=== PATIENT | female | born 1945 | race Caucasian/White ===

== ENCOUNTER → 2020-06-16 | Outpatient (CLI) | payer MEDICARE, BC ==
--- NOTE | 2020-06-16 15:54 | CT ---
EXAMINATION TYPE: CT abdomen pelvis w con DATE OF EXAM: 06/16/2020 COMPARISON: NONE HISTORY: 74-year-old female K59.00, constipation, K57.33 diverticulitis, abdominal pain, nausea TECHNIQUE: Contiguous axial scanning of the abdomen and pelvis following administration of 100 ml Iso remy 300 IV contrast. Delayed images through the kidneys and coronal/sagittal reconstructions perform ed. CT DLP: 617 mGycm Automated exposure control for dose reduction was used. FINDINGS: Heart normal size without pericardial effusion. Strandy atelectasis at the left base. No pleural effu anthony. An indeterminate 1.6 cm hypodense lesion at the right hepatic dome cyst that shows some postcontrast enhancement. No additional focal lesion. No biliary ductal dilatation. Portal venous system is patent . Gallbladder, adrenal glands, spleen, pancreas appear within normal limits. Numerous cortical hypodensities too small for accurate CT characterization, likely small cortical cys ts. In addition, there are parapelvic cysts in the left kidney measuring up to 2.0 cm. 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 No dilated small bowel, free fluid or air. No mesenteric or retroperitoneal lymphadenopathy. Oral contrast progressed to the cecum. There is mild stool within the right side of the colon. Otherw ise, no pericolonic inflammatory change. Bladder partially urine distended. Multiple pelvic phleboliths. Uterus surgically absent. Neither ova ry clearly visualized. No abnormal fluid collection in the pelvis or pelvic lymphadenopathy. Bones: Mild degenerative change of the hips. Hypertrophic facet arthropathy mid to lower lumbar spine . Trace grade 1 anterolisthesis L4-L5. IMPRESSION: 1. INDETERMINATE 1.6 CM HYPODENSE LESION AT THE RIGHT HEPATIC DOME SEEMS TO SHOW SOME ENHANCEMENT. LI SHELLEY MRI CAN FURTHER EVALUATE. NEOPLASM NOT EXCLUDED AT THIS TIME. 2. NO DIVERTICULOSIS OR ACUTE DIVERTICULITIS. 3. MILD STOOL WITHIN THE RIGHT SIDE OF THE COLON. 4. NUMEROUS SMALL RENAL LESIONS, LIKELY SMALL CORTICAL CYSTS. THERE IS ALSO A 1.7 CM BENIGN FATTY AM L OF THE LEFT KIDNEY.
== END ==
LOC: RADCTMAIN 13:59
PROVIDERS: ATTEND Surgery
DX: K59.00 Constipation, unspecified (principal); K76.89 Other specified diseases of liver; N28.9 Disorder of kidney and ureter, unspecified
CPT/HCPCS: 82565; 84520; 74177; 36415; Q9967

== ENCOUNTER → 2020-06-27 | Outpatient (CLI) | payer MEDICARE, BC ==
--- NOTE | 2020-06-29 11:27 | MR ---
MR liver without contrast HISTORY: Liver mass Multiplanar multisequence imaging through the abdomen Lack of intravenous contrast could compromise sensitivity. Exam correlated to CT scan dated 06/16/2020 At the level of the dome of the liver there is a T2 bright, T1 hypointense focus measuring approximat [place] 2.8 cm in cephalad to caudal dimension by 2.5 cm in its AP dimension by 2.3 cm in transverse dime nsion which was noted to enhance on CT. There is no retroperitoneal adenopathy. No additional liver m ass evident. There is no ascites. Multiple T2 bright foci scattered within the kidneys likely represent cysts, there are likely parapel akash cysts noted as well, focus of fat attenuation seen in the mid left kidney is again noted on MRI c onsistent with angiomyolipoma. Adrenal glands are unremarkable. Pancreas shows no mass. Gallbladder s hows dependent focal low signal which may represent a small gallstone. Spleen is not enlarged. Lung b ases show no effusions. IMPRESSION: Findings as noted on prior CT. Indeterminate liver mass. Noncontrast exam per patient's o rder.
== END | disposition home or self-care (01) ==
LOC: RADMRIMAIN 10:26
PROVIDERS: ATTEND Surgery
DX: R16.0 Hepatomegaly, not elsewhere classified (principal)
CPT/HCPCS: 74181